=== PATIENT | female | born 1950 | race Caucasian/White ===

== ENCOUNTER 2023-08-01 21:32 | Inpatient (IN) | payer MEDICARE ==
[~2023-08-01] VITALS: Ht 162.6 cm; Wt 66.9 kg
[2023-08-01 22:08] LABS: BASOPHILS ABSOLUTE AUTO 0.03 K/mm3 (0.00-0.23); BASOPHILS PERCENT AUTO 0 % (0-2); EOSINOPHILS ABSOLUTE AUTO 0.04 K/mm3 (0.00-0.68); EOSINOPHILS PERCENT AUTO 1 % (0-6); Hematocrit 44.5 % (33.0-51.0); Hemoglobin 14.2 g/dL (11.5-16.0); IMMATURE GRAN ABSOLUTE AUTO 0.06 K/mm3 (0.00-0.10); IMMATURE GRAN PERCENT AUTO 1 % (0-1); LYMPHOCYTES ABSOLUTE AUTO 1.05 K/mm3 (0.84-5.20); LYMPHOCYTES PERCENT AUTO 13 % (21-46); MONOCYTES ABSOLUTE AUTO 0.52 K/mm3 (0.16-1.47); MONOCYTES PERCENT AUTO 7 % (4-13); Mean Corpuscular HGB 27.7 pg (26.0-34.0); Mean Corpuscular HGB Conc 31.9 g/dL (31.5-36.5); Mean Corpuscular Volume 87 fL (80-100); Mean Platelet Volume 9.7 fL (9.1-12.4); NEUTROPHILS ABSOLUTE AUTO 6.11 K/mm3 (1.96-9.15); NEUTROPHILS PERCENT AUTO 78 % (41-73); Platelet Count 176 K/mm3 (150-400); RDW Coefficient Variation 14.2 % (11.7-14.2); RDW Standard Deviation 45.1 fL (35.1-46.3); Red Blood Cell Count 5.12 M/mm3 (3.80-5.20); White Blood Cell Count 7.81 K/mm3 (4.00-11.30)
[2023-08-01 22:15] LABS: Calcium, Ionized (POC) 1.19 mmol/L (1.10-1.46); Chloride (POC) 102 mmol/L (98-108); Creatinine (POC) 0.8 mg/dL (0.6-1.0); Glucose (ISTAT POC) 75 mg/dL (70-99); Potassium (POC) 3.9 mmol/L (3.5-5.5); Sodium (POC) 137 mmol/L (135-148); Total CO2 (POC) 26 mmol/L (21-32)
[2023-08-01 22:22] LABS: Alanine Aminotransfer (ALT/SGP 24 U/L (12-78); Albumin, Blood 3.5 g/dL (3.4-5.0); Albumin/Globulin Ratio 1.1 (0.8-1.8); Alk Phos 73 U/L (50-136); Anion Gap 2 mmol/L (6-16); Aspartate Aminotrans (AST/SGOT 21 U/L (12-37); Bilirubin, Total 0.3 mg/dL (0.1-1.0); Blood Urea Nitrogen 12 mg/dL (8-24); Bun/Creatinine Ratio 15.3 (12.0-20.0); CO2, Blood 29 mmol/L (21-32); Calcium, Blood 8.8 mg/dL (8.5-10.1); Chloride, Blood 107 mmol/L (98-108); Creatinine, Blood 0.79 mg/dL (0.40-1.00); Ethanol (Alcohol), Blood, Med <3 mg/dL; Globulin, Blood 3.3 g/dL (2.2-4.0); Glomerular Filtration Rate 79 (60-); Glucose, Blood 85 mg/dL (70-99); Potassium, Blood 3.9 mmol/L (3.5-5.5); Sodium, Blood 138 mmol/L (136-145); Total Protein, Blood 6.8 g/dL (6.4-8.2)
[2023-08-01] MEDS ORDERED: ASPI81CH PO (22:31)
[2023-08-01] MEDS ORDERED: PRED1 PO (22:31)
[2023-08-01 23:02] LABS: Influenza A, PCR NEGATIVE (NEGATIVE); Influenza B, PCR NEGATIVE (NEGATIVE); Resp Syncytial Virus, PCR NEGATIVE (NEGATIVE); SARS-Cov-2 (COVID-19) PCR, MMC NEGATIVE (NEGATIVE)
[2023-08-01 23:34] LABS: Source, Urine Clean Catch
[2023-08-01 23:37] LABS: Bilirubin, Urine Neg (Neg); Blood, Urine 1+ (Neg); Glucose Qualitative, Urine Neg (Neg); Ketones, Urine Neg (Neg); Leukocyte Esterase, Urine Neg (Neg); Nitrite, Urine Neg (Neg); Protein, Urine 1+ (Neg); Specific Gravity, Urine 1.015 (1.003-1.022); Urobilinogen, Urine NORM (Normal)
[2023-08-01 23:43] LABS: Appearance, Urine Clear (Clear); Color, Urine Yellow (P-Yellow)
[2023-08-01 23:44] LABS: Bacteria Not Seen /hpf; Red Blood Cells, Urine 0-2 /hpf (0-2); Squamous Epithelial Cells Not Seen /hpf (Few); Transitional Epithelial Cells Few /hpf (0-Rare); White Blood Cells, Urine Not Seen /hpf (0-5)
[2023-08-01 23:55] LABS: U Amphetamine Screen Not Detected; U Barbituate Screen Not Detected; U Benzodiazapine Screen Not Detected; U Buprenorphine Screen Not Detected; U Cannabinoids Screen Not Detected; U Cocaine Screen Not Detected; U Methadone Screen Not Detected; U Methamphetamine Screen Not Detected; U Opiates Screen DETECTED; U Oxycodone Screen Not Detected; U Phencyclidine Screen Not Detected
[2023-08-02] VITALS (9 sets, daily range): BP systolic 131–155; BP diastolic 77–97
[2023-08-02] MEDS ORDERED: DULERA 200 MCG-13 GM INH (04:18)
[2023-08-02] MEDS ORDERED: CODACE30 PO (04:56)
--- NOTE | 2023-08-02 05:15 | NUR ---
ADMISSION NOTE/ RN RAHEEM MS AGUIRRE WAS ADMITTED TO MEDICAL FLOOR FROM ER AT 0325. SHE IS ORIENTATED AND APPROPRIATE OF CONVERSATION, GOOD HISTORIAN. SHE HAS BRUISES TO LEFT SHOULDER, LEFT ARM, LEFT CHIN, RIGHT INNER ANKLE, ABRASION TO RIGHT LOWER LIP AND PURPLE MARKING TO RIGT SIDE OF TONGUE. PAINFUL LEFT SHOULDER AND ARM. ON TELEMETRY IN SR, NO CALLS FROM [facility] PROGRAM COORDINATOR. IVF 51/2NS AT 75CC/HR INFUSING. NEW PIV PLACED FOR IVF TO HAVE SECOND LINE FOR HEMIN INFUSION. HEMIN INFUSION STARTED TO LEFT A/C 18G AT 0505 AFTER FLUSHIN WITH 20CC NS. VS Q 15 MINUTES HAVE BEEN STABLE 15 MINUTES INTO INFUSION AND PT DENIES ANY NEW SYMPTOMS. IV SITE OBSERVED. SEIZURE PADS ON BED. SCDS IN PLACE. BED LOW. CALL LIGHT IN REACH.
--- NOTE | 2023-08-02 06:16 | NUR ---
RN NOTE HEMIN INFUSION COMPLETE, NS 100CC FLUSH POST INFUSION PER KINGSLEY ROSA, INFUSING NOW. VSS THROUGHOUT INFUSION, IV SITE UNCHANGED. MS AGUIRRE FELL ASLEEP AND LOOKS COMFORTABLE.
[2023-08-02 07:36] LABS: BASOPHILS ABSOLUTE AUTO 0.04 K/mm3 (0.00-0.23); BASOPHILS PERCENT AUTO 1 % (0-2); EOSINOPHILS ABSOLUTE AUTO 0.21 K/mm3 (0.00-0.68); EOSINOPHILS PERCENT AUTO 3 % (0-6); Hematocrit 39.7 % (33.0-51.0); IMMATURE GRAN ABSOLUTE AUTO 0.05 K/mm3 (0.00-0.10); IMMATURE GRAN PERCENT AUTO 1 % (0-1); LYMPHOCYTES ABSOLUTE AUTO 1.61 K/mm3 (0.84-5.20); LYMPHOCYTES PERCENT AUTO 19 % (21-46); MONOCYTES PERCENT AUTO 8 % (4-13); Mean Corpuscular HGB 28.7 pg (26.0-34.0); Mean Corpuscular HGB Conc 32.7 g/dL (31.5-36.5); Mean Corpuscular Volume 88 fL (80-100); Mean Platelet Volume 9.4 fL (9.1-12.4); NEUTROPHILS PERCENT AUTO 69 % (41-73); Platelet Count 153 K/mm3 (150-400); RDW Coefficient Variation 14.5 % (11.7-14.2); Red Blood Cell Count 4.53 M/mm3 (3.80-5.20); White Blood Cell Count 8.41 K/mm3 (4.00-11.30)
[2023-08-02 07:57] LABS: Albumin, Blood 2.9 g/dL (3.4-5.0); Anion Gap 3 mmol/L (6-16); Blood Urea Nitrogen 10 mg/dL (8-24); Bun/Creatinine Ratio 14.2 (12.0-20.0); CO2, Blood 27 mmol/L (21-32); Calcium, Blood 7.6 mg/dL (8.5-10.1); Chloride, Blood 110 mmol/L (98-108); Glomerular Filtration Rate 91 (60-); Glucose, Blood 76 mg/dL (70-99); Phosphorus, Blood 3.3 mg/dL (2.5-4.9); Potassium, Blood 3.5 mmol/L (3.5-5.5); Sodium, Blood 140 mmol/L (136-145)
--- NOTE | 2023-08-02 09:00 | NUR ---
pt sitting up in bed awake a/ox4, pleasant and cooperative with care, follows commands well, reports severe pain to left shoulder, and her mouth is sore enough that she can't eat, provided and ensure, lungs are dim t/o, a bit more air movement in upper [place], on r/a, resp even and unlabored, no cough noted, is asking for breathing tx, feels that she needs urgently, RT called, hrr, tele in place running sr per monitor, see strip, no edema noted, ppp faint, cap refill<3 sec, vs stable, afebrile, piv to r and l fa's, btx4, abd round soft tender, voids via bsc, along with pull ups, maew, very diff to move left arm due to shoulder pain, skin has large deep purple bruise to left upper arm, chery, call light in reach.
--- NOTE | 2023-08-02 16:14 | NUR ---
pt resting in bed, she has chronic pain, started her on some morphine, she said wasn't really helpful, speaking on the phone, call light in reach.
--- NOTE | 2023-08-02 18:12 | NUR ---
pt has been painful today, her left shoulder is especially painful. she did have an xray of it. no further changes this shift. call light in reach.
[2023-08-03 02:24] VITALS: BP 143/78
--- NOTE | 2023-08-03 03:46 | NUR ---
1900: ASSUMED CARE OF PT. REPORT RECEIVED FROM DAY SHIFT RN. PT IS LAYING IN BED WITH HOB ELEVATED. A/O X4, BREATHING IS EVEN AND UNLABORED. FLUIDS RUNNING ORDERED, PT TOLERATING WELL. VSS, MEDICATIONS PROVIDED ORDERED. PT REPORTING PAIN TO HEAD AND LEFT SHOULD, SEE EMR FOR TREATMENTS RECORD. NO ACUTE CHANGES DURING THE SHIFT. SAFETY MEASURES TAKEN. NEEDS ADDRESSED.
[2023-08-03 07:30] VITALS: BP 136/83
[2023-08-03 08:16] LABS: BASOPHILS ABSOLUTE AUTO 0.07 K/mm3 (0.00-0.23); BASOPHILS PERCENT AUTO 1 % (0-2); EOSINOPHILS ABSOLUTE AUTO 0.37 K/mm3 (0.00-0.68); EOSINOPHILS PERCENT AUTO 5 % (0-6); Hematocrit 38.6 % (33.0-51.0); Hemoglobin 12.5 g/dL (11.5-16.0); IMMATURE GRAN ABSOLUTE AUTO 0.04 K/mm3 (0.00-0.10); IMMATURE GRAN PERCENT AUTO 1 % (0-1); LYMPHOCYTES ABSOLUTE AUTO 1.12 K/mm3 (0.84-5.20); LYMPHOCYTES PERCENT AUTO 15 % (21-46); MONOCYTES ABSOLUTE AUTO 0.55 K/mm3 (0.16-1.47); MONOCYTES PERCENT AUTO 7 % (4-13); Mean Corpuscular HGB 28.5 pg (26.0-34.0); Mean Corpuscular HGB Conc 32.4 g/dL (31.5-36.5); Mean Corpuscular Volume 88 fL (80-100); Mean Platelet Volume 9.1 fL (9.1-12.4); NEUTROPHILS ABSOLUTE AUTO 5.47 K/mm3 (1.96-9.15); NEUTROPHILS PERCENT AUTO 72 % (41-73); Platelet Count 134 K/mm3 (150-400); RDW Coefficient Variation 14.6 % (11.7-14.2); RDW Standard Deviation 47.1 fL (35.1-46.3); Red Blood Cell Count 4.39 M/mm3 (3.80-5.20); White Blood Cell Count 7.62 K/mm3 (4.00-11.30)
[2023-08-03 08:21] LABS: Bun/Creatinine Ratio 13.8 (12.0-20.0); Calcium, Blood 7.8 mg/dL (8.5-10.1); Creatinine, Blood 0.65 mg/dL (0.40-1.00); Potassium, Blood 3.7 mmol/L (3.5-5.5)
[2023-08-03 15:06] VITALS: BP 140/70
[2023-08-03] MEDS ORDERED: LEVALBUTEROL TA15 G1 INH (17:12)
[2023-08-03] MEDS ORDERED: DULERA 200 MCG-13 GM INH (17:15)
--- NOTE | 2023-08-03 18:04 | NUR ---
PATIENT A/OX4, UP WITH SBA. GAIT STEADY, PATIENT JUST FEARFUL OF HAVING ANOTHER SEIZURE AND FALLING. L ARM/SHOULDER/FACE VERY BRUISED AND PAINFUL. PATIENT ALSO HAS AN ONGOING HEADACHE. TYLENOL #4 GIVEN TO TREAT PAIN. ONE EPISODE OF EMESIS TODAY, ZOFRAN GIVEN WITH GOOD RELIEF. DIFFICULTY EATING DUE TO LACERATION AND SWELLING TO LIP AND TONGUE. PATIENT VERY COOPERATIVE WITH CARE AND CALLS APPROPRIATELY FOR ASSISTANCE. SEIZURE PRECAUTIONS IN PLACE.
[2023-08-03 19:50] VITALS: BP 148/79
[2023-08-04 03:16] VITALS: BP 137/83
--- NOTE | 2023-08-04 04:48 | NUR ---
1900: ASSUMED CARE OF PT, REPORT RECEIVED FROM DAY SHIFT RN. PT IS LAYING IN BED WITH HOB ELEVATED. NO ACUTE DISTRESS AT THIS TIME. OXYGEN VIA NC AT 3LPM. CALL TO RT TO SET UP AEROGRAPHER AND CPAP MACHINE. HOSPITAL MACHING IN USE AT THIS TIME R/T TO THE CONDITION OF PT'S ABELINO CPAP. OXYGEN SATURATION MAINTAINED THROUGH THE SHIFT AT 90-94%. PT WITH MINIMAL OUTPUT IN THE PUREWICK, LARGE INCONTINENT VOID. NEW PURE WICK PLACED AFTER FATOU CARE AND BRIEF CHANGE. PT ENCOURAGED TO DRINK FLUIDS. SET UP WITH SOFT TOUCH CALL LIGHT UPON ARRIVAL TO THE UNIT. PT IS ABLE TO DEMONSRATE USE. SAFETY MEASURES ADDRESSED AND NEEDS MET THROUGHOUT THE NIGHT.
--- NOTE | 2023-08-04 05:01 | NUR ---
1900: ASSUMED CARE OF PT, REPORT RECEIVED FROM DAY SHIFT RN. PT IS LAYING IN BED WITH HOB ELEVATED. A/OX4, BREATHING IS EVEN AND UNLABOERED, SHALLOW. DENIES NEEDS, NO DISTRESS NOTED AT THIS TIME. REPORTS PAIN CONTROLED AT THE START OF SHIFT. REQUIRED PAIN MEDICAION INTERVENTION DURING THE SHIFT FOR H/A, SEE EMR. PT RESTED IN BED WITH EYES CLOSED MOST OF THE SHIFT. SAFETY MEASURES TAKEN. NEEDS MET.
[2023-08-04 07:50] VITALS: BP 111/95
[2023-08-04 16:13] VITALS: BP 127/75
--- NOTE | 2023-08-04 17:14 | NUR ---
SUMMARY- AAOX4 AND INDEPENDENT TO BATHROOM. GENERAL PAIN WELL CONTROLLED WITH TYLENOL #4 ON EMAR. PT PLEASANT AND COOPERATIVE WITH ALL CARE.
[2023-08-04] MEDS ORDERED: LISI20 PO (20:09)
[2023-08-04 20:12] VITALS: BP 152/84
[2023-08-05 02:43] VITALS: BP 148/82
--- NOTE | 2023-08-05 07:41 | NUR ---
SHIFT SUMMARY PT A&OX4. PT C/O HEADACHE T/O NIGHT. MEDICATED PER EMAR WITH MINIMAL EFFECT. PT ABLE TO SLEEP FOR A FEW HOURS TOWARD THE END OF THE NIGHT. VSS. NO ACUTE CHANGES. BED IN LOWEST POSITION AND CALL LIGHT IN REACH.
[2023-08-05] MEDS ORDERED: DOCU100 PO (11:53)
[2023-08-05] MEDS ORDERED: Senna Laxative8.6 MG PO (11:54)
--- NOTE | 2023-08-05 15:51 | NUR ---
DC-1210- PT BROUGHT DOWN IN BY [employer]ATION [employer] ATTORNEY IN STABLE CONDITION. PT LEFT WITH ALL BELONGINGS. PT PICKED UP BY . RN EMPHASIZED FOLLOW UP WITH PCP. PT NOTED NOT TO HAVE ESTABLISHED PCP LOCALLY. PT STATED SHE WILL NOT SEE A DOCTOR UNTIL SEPTEMBER AND IT WILL BE UP IN [place]. RN GAVE PT AND RISKS OF THIS. PT VERBALLY UNDERSTOOD.
== END 2023-08-05 12:16 | disposition home or self-care (01) | DRG 642 ==
LOC: ER 21:32 → MEDS 21:33 → EDBEDREQDT 08-02 02:56 → EDBEDREQSVC 08-02 02:56 → EDBEDREQ 08-02 02:56 → EDBEDREQTM 08-02 02:56 → MEDS 08-02 03:24 → ENPENDDIS 08-05 10:56 → MEDS 08-05 12:16
PROVIDERS: Emergency Medicine; Family Medicine; Internal Medicine; ADMIT Internal Medicine
DX: E80.20 Unspecified porphyria (principal); R56.9 Unspecified convulsions; M25.512 Pain in left shoulder; S00.531A Contusion of lip, initial encounter; S00.532A Contusion of oral cavity, initial encounter; G89.29 Other chronic pain; I10 Essential (primary) hypertension; J43.9 Emphysema, unspecified; W18.30XA Fall on same level, unspecified, initial encounter; Z11.52 Encounter for screening for COVID-19; Z28.04 Immunization not carried out because of patient allergy to vaccine or component
CPT/HCPCS: 0241U; 36415; 70450; 71045; 73060; 73200; 80047; 80048; 80053; 80069; 81001; 83735; 84484; 85014; 85025; 93005; 93010; 94640; 94664; 94760; 96361; 96372; 96374; 96375; 99285-25; A9270; G0378; J1640; J1650; J2060; J2270; J2405; J7030; J7042; J7050